=== PATIENT | male | born 1980 ===

== ENCOUNTER → 2017-08-26 | Outpatient (CLI) | payer OTHER | END | disposition home or self-care (01) | LOC: SONOGRAMA 11:09 | DX: M75.32 Calcific tendinitis of left shoulder (principal) ==

== ENCOUNTER 2017-09-01 13:00 | Outpatient (CLI) | payer OTHER | END 2017-09-01 13:05 | disposition home or self-care (01) | LOC: SONOGRAMA 13:00 | DX: E10.29 Type 1 diabetes mellitus with other diabetic kidney complication (principal); N18.3 Chronic kidney disease, stage 3 (moderate); E10.40 Type 1 diabetes mellitus with diabetic neuropathy, unspecified; I69.354 Hemiplegia and hemiparesis following cerebral infarction affecting left non-dominant side ==

== ENCOUNTER 2022-06-23 07:13 | Outpatient (CLI) | payer OTHER | END 2022-06-23 07:18 | disposition home or self-care (01) | LOC: NUCLEAR 07:13 | PROVIDERS: ATTEND Internal Medicine Cardiovascular Disease | DX: I25.9 Chronic ischemic heart disease, unspecified (principal); I63.9 Cerebral infarction, unspecified | CPT/HCPCS: 78452; 93017; A9500; J0153 ==